=== PATIENT | female | born 1975 | race Hispanic/Latino ===

== ENCOUNTER 2020-04-12 12:40 | Observation (INO) | payer MEDICARE, OTHER ==
[~2020-04-12] VITALS: Ht 139.7 cm; Wt 110.7 kg
[~2020-04-12 12:40] MED LIST: BUMETANIDE1 MG PO; LABETALOL HCL100 MG PO; LEVOTHYROX200 MCG/VI PO; LYRICA75 MG PO; METOLAZONE5 MG PO; METOPROLOL SUCC50 MG; POTASSIUM CHLO10 ME1 PO; TAPAZOLE10 MG; ULTRAM50 MG PO
--- NOTE | 2020-04-12 12:56 | Emergency Department Note ---
History of Present Illnes History of Present Illness Chief Complaint: Chest Pain History of Present Illness This is a 45 year old female arrives to the ED with complaints left-marilou ed chest pain is worse on exertion started yesterday . Chief Complaint Comment PATIENT IN FROM HOME WITH COMPLAINTS OF LEFT SIDED CHEST PAIN RADIATING DOWN LEFT ARM STARTING APPROX 0300; STATES THAT SHE TOOK A BABY ASPIRIN, WHICH HELPED SOME. PATIENT RATES PAIN 6/10, APPEARS ANXIOUS, RESP EVEN AND NONLABORED, AMBULATORY WITHOUT ASSISTANCE Historian: Patient Arrival Mode: Car Onset (how long ago): week(s) Onset quality: sudden Duration (how long): day(s) Timing of current episode: constant Relieving factors: none Past Medical/Family History Physician Review I have reviewed the patient's past medical and family history. Any updates have been documented here. Past Medical History Recent Fever: No Clinical Suspicion of Infectio: No New/Unexplained Change in Ment: No Past Medical History: Hypothyroidism Past Surgical History: Other Surgery: csection Social History Smoking Cessation: Never Smoker Other Last Tetanus: uitd Review of Systems Review of Systems Constitutional: Reports no symptoms EENTM: Reports no symptoms Cardiovascular: Reports as per HPI, Reports chest pain Respiratory: Reports no symptoms Gastrointestinal: Reports no symptoms Genitourinary: Reports no symptoms Musculoskeletal: Reports no symptoms Integumentary: Reports no symptoms Neurological: Reports no symptoms Psychological: Reports no symptoms Endocrine: Reports no symptoms Hematological/Lymphatic: Reports no symptoms Physical Exam Related Data Allergies: Coded Allergies: No Known Allergies (Unverified , 01/07/15) Triage Vital Signs Vital Signs Date Time Temp Pulse Resp B/P (MAP) Pulse Ox O2 Delivery O2 Flow Rate FiO2 04/12/20 12:45 98.4 106 20 149/83 100 Room Air Vital signs reviewed: Yes Physical Exam CONSTITUTIONAL Constitutional: Present well-developed, Present well-nourished HENT HENT: Present normocephalic, Present atraumatic, Present oropharynx clear/moist, Present nose normal HENT L/R: Present left ext ear normal, Present right ext ear normal EYES Eyes: Reports PERRL, Reports conjunctivae normal NECK Neck: Present ROM normal PULMONARY Pulmonary: Present effort normal, Present breath sounds normal CARDIOVASCULAR Cardiovascular: Present regular rhythm, Present heart sounds normal, Present capillary refill normal, Present normal rate GASTROINTESTINAL Abdominal: Present soft, Present nontender, Present bowel sounds normal GENITOURINARY Genitourinary: Present exam deferred SKIN Skin: Present warm, Present dry MUSCULOSKELETAL Musculoskeletal: Present ROM normal NEUROLOGICAL Neurological: Present alert, Present oriented x 3, Present no gross motor or sensory deficits PSYCHOLOGICAL Psychological: Present mood/affect normal, Present judgement normal Results Laboratory Lab results reviewed: Yes Laboratory comments Laboratory Tests Test 04/12/20 12:50 White Blood Count 8.12 x10e3/uL (4.8-10.8) Red Blood Count 4.84 x10e6/uL (3.6-5.1) Hemoglobin 14.8 g/dL (12.0-16.0) Hematocrit 44.4 % (34.2-44.1) Mean Corpuscular Volume 91.7 fL (81-99) Mean Corpuscular Hemoglobin 30.6 pg (28-32) Mean Corpuscular Hemoglobin Concent 33.3 g/dL (31-35) Red Cell Distribution Width 13.0 % (11.7-14.4) Platelet Count 274 x10e3/uL (140-360) Neutrophils (%) (Auto) 73.9 % (38.7-80.0) Lymphocytes (%) (Auto) 20.4 % (18.0-39.1) Monocytes (%) (Auto) 3.3 % (4.4-11.3) Eosinophils (%) (Auto) 1.0 % (0.0-6.0) Basophils (%) (Auto) 0.5 % (0.0-1.0) Neutrophils # (Auto) 6.0 (2.1-6.9) Lymphocytes # (Auto) 1.7 (1.0-3.2) Monocytes # (Auto) 0.3 (0.2-0.8) Eosinophils # (Auto) 0.1 (0.0-0.4) Basophils # (Auto) 0.0 (0.0-0.1) Absolute Immature Granulocyte (auto 0.07 x10e3/uL (0-0.1) Prothrombin Time 12.6 seconds (11.9-14.5) Prothromb Time International Ratio 0.90 Activated Partial Thromboplast Time 29.7 seconds (23.8-35.5) Sodium Level 143 mmol/L (136-145) Potassium Level 3.9 mmol/L (3.5-5.1) Chloride Level 110 mmol/L (98-107) Carbon Dioxide Level 21 mmol/L (22-29) Anion Gap 15.9 mmol/L (8-16) Blood Urea Nitrogen 11 mg/dL (7-26) Creatinine 0.82 mg/dL (0.57-1.11) Estimat Glomerular Filtration Rate > 60 ML/MIN (60-) BUN/Creatinine Ratio 13 (6-25) Glucose Level 136 mg/dL (74-118) Calcium Level 9.3 mg/dL (8.4-10.2) Total Bilirubin 0.5 mg/dL (0.2-1.2) Aspartate Amino Transf (AST/SGOT) 18 IU/L (5-34) Alanine Aminotransferase (ALT/SGPT) 28 IU/L (0-55) Alkaline Phosphatase 96 IU/L (40-150) Creatine Kinase 34 IU/L (29-168) Creatine Kinase MB 0.80 ng/mL (0-5.0) Troponin I 0.007 ng/mL (0-0.300) B-Type Natriuretic Peptide 11.9 pg/mL (0-100) Total Protein 7.3 g/dL (6.5-8.1) Albumin 4.3 g/dL (3.5-5.0) Globulin 3.0 g/dL (2.3-3.5) Albumin/Globulin Ratio 1.4 (0.8-2.0) Imaging Imaging results reviewed: Yes Procedures 12 Lead ECG Interpretation ECG Interpretation : ECG: ECG 1 Prior ECG tracings: reviewed Ectopy: PVC's Rate: normal QRS axis: left ST segments normal: Yes T waves normal: Yes Clinical Impression: normal ECG Assessment & Plan Medical Decision Making MDM 45-year-old female arrives to the ED with complaints of atypical chest pain. 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 Patient admitted for serial cardiac markers. Assessment & Plan Final Impression: (1) Chest pain Depart Disposition: ADMITTED Last Vital Signs Date Time Temp Pulse Resp B/P (MAP) Pulse Ox O2 Delivery O2 Flow Rate FiO2 04/12/20 12:45 98.4 106 20 149/83 100 Room Air Home Meds Reported Medications Tramadol Hcl (ULTRAM) 50 Mg Tablet, 50 MG PO QID, TAB 01/07/15 Levothyroxine Sodium (LEVOTHYROXINE SODIUM) 200 Mcg/Vial Inj, 175 MCG PO DAILY, VIAL 01/07/15 Metolazone (METOLAZONE) 5 Mg Tablet, 10 MG PO DAILY, #30 TAB 01/07/15 Potassium Chloride (POTASSIUM CHLORIDE) 10 Meq Tab.er.prt, 10 MEQ PO DAILY, TAB 01/07/15 Bumetanide (BUMETANIDE) 1 Mg Tablet, 1 MG PO DAILY, #30 TAB 01/07/15 Pregabalin (LYRICA) 75 Mg Cap, 75 MG PO DAILY, #30 CAP 01/07/15 Labetalol Hcl (LABETALOL HCL) 100 Mg Tablet, 100 MG PO BID, #30 TAB 01/07/15 Metoprolol Succinate (METOPROLOL SUCCINATE) 50 Mg Tab.er.24h, BID 05/20/12 Methimazole (TAPAZOLE) 10 Mg Tablet, TID 05/20/12 Medications in the ED Aspirin 81 mg PRN ONCE PO ; Start 04/12/20 at 13:00; Stop 04/12/20 at 13:01 JOSE JAIN DO Apr 12, 2020 12:56
[2020-04-12 12:58] LABS: BASOPHILS % 0.5 % (0.0-1.0); EOSINOPHILS # (AUTO) 0.1 (0.0-0.4); HEMATOCRIT 44.4 % (34.2-44.1); HEMOGLOBIN 14.8 g/dL (12.0-16.0); LYMPHOCYTES # (AUTO) 1.7 (1.0-3.2); LYMPHOCYTES % 20.4 % (18.0-39.1); MEAN CORPUSCULAR HEMOGLOBIN 30.6 pg (28-32); MEAN CORPUSCULAR HGB CONC 33.3 g/dL (31-35); MEAN CORPUSCULAR VOLUME 91.7 fL (81-99); MONOCYTES # (AUTO) 0.3 (0.2-0.8); MONOCYTES % 3.3 % (4.4-11.3); NEUTROPHILS % 73.9 % (38.7-80.0); PLATELET COUNT 274 x10e3/uL (140-360); RED BLOOD COUNT 4.84 x10e6/uL (3.6-5.1)
[2020-04-12] MEDS ORDERED: ASPIRIN 81 MG CHEW TAB PO ONE ×2 (13:00→15:30)
[2020-04-12 13:09] LABS: INR 0.9; PARTIAL THROMBOPLASTIN TIME 29.7 seconds (23.8-35.5); PROTHROMBIN TIME 12.6 seconds (11.9-14.5)
[2020-04-12 13:19] LABS: ALANINE AMINOTRANSFERASE 28 IU/L (0-55); ALBUMIN 4.3 g/dL (3.5-5.0); ALBUMIN/GLOBULIN RATIO 1.4 (0.8-2.0); ALKALINE PHOSPHATASE 96 IU/L (40-150); ANION GAP 15.9 mmol/L (8-16); BLOOD UREA NITROGEN 11 mg/dL (7-26); BUN/CREATININE RATIO 13 (6-25); CALCIUM 9.3 mg/dL (8.4-10.2); CARBON DIOXIDE 21 mmol/L (22-29); CHLORIDE 110 mmol/L (98-107); CREATINE KINASE 34 IU/L (29-168); CREATININE, SERUM 0.82 mg/dL (0.57-1.11); EST GLOMERULAR FILTRATION RATE > 60 ML/MIN (60-); GLUCOSE 136 mg/dL (74-118); POTASSIUM 3.9 mmol/L (3.5-5.1); SODIUM 143 mmol/L (136-145)
--- NOTE | 2020-04-12 14:09 | Diagnostic Imaging Report ---
EXAMINATION: CHEST SINGLE (PORTABLE) INDICATION: Chest pain COMPARISON: Chest radiograph 01/07/2015 FINDINGS: LINES/TUBES:None LUNGS:The lungs are well-inflated. No focal consolidation or pulmonary edema. PLEURA:No pleural effusion or pneumothorax. MEDIASTINUM:The cardiomediastinal silhouette appears normal in size and shape. BONES/SOFT TISSUES:No acute osseous injury. ABDOMEN:No free air under the diaphragm. IMPRESSION: No focal pneumonia or pulmonary edema. Signed by: Carol Jiang MD on 04/12/2020 2:05 PM
--- NOTE | 2020-04-12 17:42 | NUR ---
1st attempt to call report
--- NOTE | 2020-04-12 17:47 | NUR ---
received telephone order from Dr. Vinod North for Echocardiogram and states that he will see her in the AM
--- NOTE | 2020-04-12 17:50 | NUR ---
2nd attempt to call report
--- NOTE | 2020-04-12 19:12 | NUR ---
pt received. upon walking rounds pt co chest pain to mid chest pain scale rate 4. tele in place. spoke to dr sherman regarding chest pain. new orders received. will cont to follow poc. call jane within reach.
[2020-04-12 19:13] VITALS: BP 142/82
[2020-04-12] MEDS ORDERED: NITROGLYCERIN 0.4 MG SUBL SL PRN (19:30)
[2020-04-12] MEDS ORDERED: HYDROCODONE/APAP 5MG-325MG TAB PO PRN (19:30)
--- NOTE | 2020-04-12 19:39 | NUR ---
no co chest pain. no distress noted. admission hx obtained at time. call jane within reach.
[2020-04-12 20:00] VITALS: BP 142/82
[2020-04-12 20:07] LABS: CREATINE KINASE MB 0.6 ng/mL (0-5.0)
[2020-04-12 20:31] VITALS: BP 142/82
[2020-04-12] MEDS ORDERED: SYNTHROID125 MCG PO (22:56)
[2020-04-12] MEDS ORDERED: HYDRALAZINE HCL 20 MG/ML VIAL IV PRN (23:00)
[2020-04-12] MEDS ORDERED: ACETAMINOPHEN 325 MG TAB PO PRN (23:00)
[2020-04-12] MEDS ORDERED: ONDANSETRON HCL INJ 2MG/ML 2ML 2 MG/ML VIAL IV PRN (23:00)
[2020-04-12] MEDS ORDERED: METOPROLOL TARTRATE INJ 1 MG/ML VIAL IV PRN (23:00)
[2020-04-13 00:24] VITALS: BP 115/62
[2020-04-13 04:51] VITALS: BP 149/90
--- NOTE | 2020-04-13 04:53 | NUR ---
pt resting. no ss of distress noted. call jane within reach.
[2020-04-13 05:14] LABS: CHOL/HDL RATIO 2.8 (3.0-3.6)
[2020-04-13 05:37] LABS: CREATINE KINASE MB 0.5 ng/mL (0-5.0)
[2020-04-13] MEDS ORDERED: LEVOTHYROXINE SODIUM 100 MCG TAB PO SCH (06:30)
[2020-04-13] MEDS ORDERED: LEVOTHYROXINE SODIUM 75 MCG TAB PO SCH (06:30)
--- NOTE | 2020-04-13 07:10 | NUR ---
RCD PT AT BED PT IS ALERT AND ORIENTED RESTING ON BED IV PATENT BED LOW AND LOCKED CALL LIGHT IN REACH
[2020-04-13 08:41] VITALS: BP 141/73
[2020-04-13 09:08] VITALS: BP 141/73
[2020-04-13] MEDS ORDERED: METOPROLOL SUCCINATE 25 MG TAB XL PO SCH (10:00)
[2020-04-13] MEDS ORDERED: METOPROLOL SUCC25 MG PO (11:14)
[2020-04-13 11:20] VITALS: BP 127/76
--- NOTE | 2020-04-13 12:56 | NUR ---
PATIENT WENT HOME IN SAFE CONDITION WITH HER SISTER
--- NOTE | 2020-04-13 13:03 | History and Physical ---
CHIEF COMPLAINT: Chest pain. HISTORY OF PRESENT ILLNESS: A 45 years old morbidly obese female with hypothyroidism, came in with atypical chest pain. The patient had a stress test previously that was negative that was approximately 1-2 years ago. She is now pending for another stress test as an outpatient with Dr. North, but she came to emergency room instead. The patient's cardiac enzymes have been negative. Chest x-ray unremarkable. The patient is pending for stress test. PAST MEDICAL HISTORY: Morbid obesity, hypothyroidism. PAST SURGICAL HISTORY: Noncontributory. SOCIAL HISTORY: The patient does not smoke or use alcohol. No regular drugs. ALLERGIES: NO KNOWN ALLERGIES. HOME MEDICATIONS: Levothyroxine. PHYSICAL EXAMINATION: VITAL SIGNS: Temperature is 98, blood pressure 149/90, pulse rate 69, respirations 18. GENERAL: The patient is not in acute distress, awake. HEENT: Normocephalic and atraumatic. Anicteric. NECK: Supple grossly. PULMONARY: Clear. CARDIOVASCULAR: Regular rate and rhythm. ABDOMEN: Soft and unremarkable. EXTREMITIES: No cyanosis or edema. NEUROLOGIC: No gross focal deficit. LABORATORY DATA: Sodium 143, potassium 3.9, chloride 110, bicarb 21, BUN 11, creatinine 0.8, glucose is 136. WBC is 8.1, hemoglobin 14.8, hematocrit is 44.4, platelets 274. Cardiac enzymes, troponin I is negative. IMPRESSION: 1. Atypical chest pain. 2. Morbid obesity. 3. Hypothyroidism. PLAN: Echocardiogram. Dr. North to see the patient. Once stress test is negative, the patient should be able to go home today. MD MARISSA Wynne/GORGEL /[id number]
[2020-04-13] MEDS ORDERED: ONDANSETRON HCL 4 MG ORAL DISINTEGRATING TAB PO PRN (13:30)
--- NOTE | 2020-04-13 18:34 | Progress Note ---
DATE: 04/13/2020 Cardiology Consultation REASON FOR CONSULTATION: Chest pain. 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 The patient underwent cardiac rule out with negative troponins x3. BNP has been 11.9. P.r.n. analgesics were provided with symptomatic improvement. Telemetry was remarkable for occasional PVCs. REVIEW OF SYSTEMS: A 12-system review negative except for as noted above. PAST MEDICAL HISTORY: As per HPI, achondroplasia and hypothyroidism. SOCIAL HISTORY: No smoking, alcohol, or drugs. FAMILY HISTORY: Noncontributory. PHYSICAL EXAMINATION: VITAL SIGNS: Temperature 98.3, heart rate 72, blood pressure 141/73, respiratory rate 20, and O2 saturation 99%. BMI 56. GENERAL: In no acute distress. Alert. NECK: No JVD. CHEST: Clear to auscultation. CARDIOVASCULAR: Regular rate and rhythm. Normal S1 and S2. No S3. No S4. ABDOMEN: Soft. Bowel sounds positive. EXTREMITIES: Trace edema. CARDIOVASCULAR MEDICATIONS: Reviewed. Metoprolol tartrate 5 mg q.3 hours p.r.n., hydralazine 10 q.2 hours p.r.n., nitroglycerin p.r.n., acetaminophen/hydrocodone q.6 hours p.r.n. STUDIES: Reviewed. Chest x-ray, clear lungs. Normal cardiomediastinal silhouette. Sodium 143, potassium 3.9, chloride 110, bicarbonate 21, BUN 11, creatinine 0.8, and glucose 136. White blood cells 8, hemoglobin 14.8, and platelets 274. PT 12.6, PTT 29.7, and INR 0.9. AST 18, ALT 28, and alkaline phosphatase 96. BNP 11.9. Troponin I negative x3. LDL 84, HDL 52, and triglycerides 145. ASSESSMENT AND PLAN: A 45-year-old woman presents with atypical chest discomfort, occasional premature ventricular contractions on telemetry, monitor, hypothyroidism, achondroplasia. RECOMMEND: Symptoms have somewhat abated. At presentation, atypical lasting several days and in spite of these negative cardiac biomarkers. Outpatient stress test has been advised and discussed with the patient for scheduling. The patient has office appointment arranged. Initiate home p.o. beta-tiffany therapy. Alarm signs discussed with the patient to return to ER or call 911. MD TabaresV/MODL /[id number]
--- OUTSIDE RECORDS SUMMARY | 2020-04-17 15:19 | XMS REPORT | Continuity of Care Document ---
Author Author [facility] t Organization [facility] Address [address] [place] [address] Phone Unavailable Care Team Providers Care Sign Hanger Supervisor Name Role Phone MD Sarabjit RICKS PCP [phone] Krzysztof JAIN Unavailable Payers Payer Name Policy Type Policy Number Effective Date Expiration Date Krzysztof bahena [facility] [id number] 00:[facility]00 [facility] Problems Condition Name Condition Details Condition Category Status Onset Date Resolution Date Last Treatment Date Treating Clinician Comments Source Chest pain Problem Active [facility] Allergies, Adverse Reactions, Alerts This patient has no known allergies or adverse reactions. Social History Social Habit Start Date Stop Date Quantity Comments Source Sex Assigned At 1975 00:00:00 1975 00:00:00 Female [facility] Medications Ordered Medication Name Filled Medication Name Start Date Stop Da te Current Medication? Ordering Clinician Indication Dosage Frequency Signature (SIG) Comments Components Source Levothyroxine Sodium (Synthroid) 125 Mcg TAB Levothyro xine Sodium (Synthroid) 125 Mcg TAB Yes 175 Today At 6:30AM [facility] Metoprolol Succinate Metoprolol Succinate Yes Bedtime [facility] Bumetanide Bumetanide 2020-04-12 00:00:00 No 1 Archana ly [facility] Labetalol Hcl Labetalol Hcl 2020-04-12 00:00:00 No 100 Twice A Day [facility] Levothyroxine Sodium Levothyroxine Sodium 2020-04-12 00:00:00 No 175 Daily [facility] Methimazole (Tapazole) 10 Mg TABLET Methimazole (Tapazole) 10 Mg TABLET 2020-04-12 00:00:00 No Three Times A Day [facility] Metolazone Metolazone 2020-04-12 00:00:00 No 10 Archana ly [facility] Metoprolol Succinate Metoprolol Succinate 2020-04-12 00:00:00 No Twice A Day [facility] Potassium Chloride Potassium Chloride 2020-04-12 00:00:00 No 10 Daily [facility] Pregabalin (Lyrica) 75 Mg CAP Pregabalin (Lyrica) 75 Mg CAP 2020-04-12 00:00:00 No 75 Daily [facility] Tramadol Hcl (Ultram) 50 Mg TABLET Tramadol Hcl (Ultram) 50 Mg T ABLET 2020-04-12 00:00:00 No 50 Four Times Daily [facility] Vital Signs Vital Name Observation Time Observation Value Comments Source Body Temperature 2020-04-13 11:20:00 98.0 [degF] [facility] Weight 2020-04-12 19:34:00 244 [lb_av] [facility] BMI (Body Mass Index) 2020-04-12 19:34:00 56.7 kg/m2 [facility] Procedures This patient has no known procedures. Plan of Care Planned Activity Planned Date Details Comments Source Instructions Chest Pain - Chest Wall [facility] Encounters Start Date/Time End Date/Time Encounter Type Admission Type [facility] Care Department Encounter ID Source 2020-04-12 15:32:00 2020-04-13 12:56:00 Discharged Inpatient (obs) 1 JOSE JAIN [facility] [id number] I [facility] Results Test Description Test Time Test Comments Results Result Comments Source Serum or plasma triglyceride measurement (mass/volume) 04-13 04:35:00 Test Item Triglycerides Level (test code = 2571-8) 45 0-149 [facility] cholesterol measurement (mass/volume)2020-04-13 04:35:00* Test Item Value Reference Range Interpretation Comments Cholesterol Level (test code = 2093-3) 145 0-199 Less than 200 mg/dL Low Dysf529 - 239 mg/dL Borderline Wjvq760 m g/dl and greater High Risk [facility] plasma cholesterol in LDL measurement (mass/volume) 2020-04-13 04:35:00* Test Item Value Reference Range Interpretation Comments LDL Cholesterol (test code = 2089-1) 84 60-130 [facility] cholesterol in HDL measurement (mass/volume)2020-04-13 04:35:00* Test Item Value Reference Range Interpretation Comments HDL Cholesterol (test code = 2085-9) 52 40-60 [facility] plasma total cholesterol/cholesterol in HDL mass [id number] 04:35:00* Test Item Value Reference Range Interpretation Comments Cholesterol/HDL Ratio (test code = 9830-1) 2.8 3.0-3.6 [facility] or plasma creatine kinase measurement (enzymatic activity/volume)2020-04-13 04:35:00* Test Item Value Reference Range Interpretation Comments Creatine Kinase (test code = 2157-6) 25 29-168 [facility] plasma creatine kinase MB measurement (mass/volume)2020-04-13 04:35:00* Test Item Value Reference Range Interpretation Comments Creatine Kinase MB (test code = 73124-3) 0.50 0-5.0 [facility] I measurement by highly sensitive enzyme [id number] 04:35:00* Test Item Value Reference Range Interpretation Comments Troponin I (test code = 50427-1) 0.013 0-0.300 [facility] Hospital[facility]ST SINGLE (PORTABLE)2020-04-12 14:05:00 [facility] [address] [place] [address] Patient Name: KASIA ROSE MR #: [id number] : 1975 Age/Sex: 45/F Req #: [id number] Adm Physician: Ordered by: JOSE JAIN DO Report #: [id number] Location: ER Room/Bed: Procedure: [id number] DX/CHEST SI NGLE (PORTABLE) Exam Date: 04/12/20 Exam Time: 1349 REPORT STATUS: Signed EXAMINATIO N: CHEST SINGLE (PORTABLE) INDICATION: Chest pain COMPARISON: [facility] st radiograph 01/07/2015 FINDINGS: LINES/TUBES:None LUNGS:The lungs are well-inflated. No focal consolidation or pulmonary edema. PLEURA :No pleural effusion or pneumothorax. MEDIASTINUM:The cardiomediastinal ricardo houette appears normal in size and shape. BONES/SOFT TISSUES:No acute osseo us injury. ABDOMEN:No free air under the diaphragm. IMPRESSION: No focal pneumonia or pulmonary edema. Signed by: Beth Shipley MD on 04/12/20 2:05 PM Dictated By: BETH SHIPLEY MD 04 Transcribed By: ДМИТРИЙ on 04/12/201404 COPY TO: JOSE JAIN DO Blood leukocytes automated count (number/volume) 2020-04-12 12:50:00* Test Item Value Reference Range Interpretation Comments White Blood Count (test code = 6690-2) 8.12 4.8-10.8 [facility] erythrocytes automated count (number/volume)2020-04-12 12:50:00* Test Item Value Reference Range Interpretation Comments Red Blood Count (test code = 789-8) 4.84 3.6-5.1 [facility] hemoglobin measurement (moles/volume)2020-04-12 12:50:00* Test Item Value Reference Range Interpretation Comments Hemoglobin (test code = 52625-0) 14.8 12.0-16.0 [facility] HospitalAutomated blood hematocrit (volume fraction)2020-04-12 12:50:00* Test Item Value Reference Range Interpretation Comments Hematocrit (test code = 4544-3) 44.4 34.2-44.1 [facility] HospitalAutomated erythrocyte mean corpuscular [id number] 12:50:00* Test Item Value Reference Range Interpretation Comments Mean Corpuscular Volume (test code = 787-2) 91.7 81-99 [facility] HospitalAutomated erythrocyte mean corpuscular hemoglobin (mass per erythrocyte)2020-04-12 12:50:00* Test Item Value Reference Range Interpretation Comments Mean Corpuscular Hemoglobin (test code = 785-6) 30.6 28-32 [facility] HospitalAutfirst[facility] erythrocyte mean corpuscular hemoglobin concentration measurement (mass/volume)2020-04-12 12:50:00* Test Item Value Reference Range Interpretation Comments Mean Corpuscular Hemoglobin Concent (test code = 786-4) 33.3 31-35 [facility] HospitalRDW [id number]-[id number] 12:50:00* Test Item Value Reference Range Interpretation Comments Red Cell Distribution Width (test code = 69600-8) 13.0 11.7 -14.4 [facility] HospitalAut[facility] wayneed blood platelet count (count/volume)2020-04-12 12:50:00* Test Item Value Reference Range Interpretation Comments Platelet Count (test code = 777-3) 274 140-360 [facility] HospitalAut[facility] blood segmented neutrophil count as percentage of total caujtkyxis4016-70-53 12:50:00* Test Item Value Reference Range Interpretation Comments Neutrophils (%) (Auto) (test code = 09142-2) 73.9 38.7-80.0 [facility] HospitalAutfirst[facility] blood lymphocyte count as percentage ot total yyufvkscsf2825-26-29 12:50:00* Test Item Value Reference Range Interpretation Comments Lymphocytes (%) (Auto) (test code = 736-9) 20.4 18.0-39.1 [facility] HospitalAutomated blood monocyte count as percentage of total [id number] 12:50:00* Test Item Value Reference Range Interpretation Comments Monocytes (%) (Auto) (test code = 5905-5) 3.3 4.4-11.3 [facility] HospitalAutomated blood eosinophil count as percentage of total pijffctbsw6838-53-90 12:50:00* Test Item Value Reference Range Interpretation Comments Eosinophils (%) (Auto) (test code = 713-8) 1.0 0.0-6.0 [facility] HospitalAutomated blood basophil count as percentage of total oyyfrouwrg5994-29-29 12:50:00* Test Item Value Reference Range Interpretation Comments Basophils (%) (Auto) (test code = 706-2) 0.5 0.0-1.0 [facility] HospitalFluoroscopic procedure less than one hour imwlejxa9013-56-76 12:50:00* Test Item Value Reference Range Interpretation Comments IM GRANULOCYTES % (test code = IM GRANULOCYTES %) 0.9 0.0- 1.0 [facility] HospitalAutomated blood neutrophil count 2020-04-12 12:50:00* Test Item Value Reference Range Interpretation Comments Neutrophils # (Auto) (test code = 751-8) 6.0 2.1-6.9 [facility] HospitalBlood lymphocytes count (number/volume) 2020-04-12 12:50:00* Test Item Value Reference Range Interpretation Comments Lymphocytes # (Auto) (test code = 14718-6) 1.7 1.0-3.2 [facility] HospitalBlood monocytes automated count (number/volume)2020-04-12 12:50:00* Test Item Value Reference Range Interpretation Comments Monocytes # (Auto) (test code = 742-7) 0.3 0.2-0.8 [facility] HospitalAutomated blood eosinophil count 2020-04-12 12:50:00* Test Item Value Reference Range Interpretation Comments Eosinophils # (Auto) (test code = 711-2) 0.1 0.0-0.4 [facility] HospitalAutomated blood basophil count (count/volume)2020-04-12 12:50:00* Test Item Value Reference Range Interpretation Comments Basophils # (Auto) (test code = 704-7) 0.0 0.0-0.1 [facility] HospitalFluoroscopic procedure less than one hour sdxgrflr3807-41-11 12:50:00* Test Item Value Reference Range Interpretation Comments Absolute Immature Granulocyte (auto (fer t code = Absolute Immature Granulocyte (auto) 0.07 0-0.1 [facility] HospitalProthrombin time (PT) in platelet poor plasma by coagulation [id number] 12:50:00* Test Item Value Reference Range Interpretation Comments Prothrombin Time (test code = 5902-2) 12.6 11.9-14.5 [facility] HospitalINR in Platelet poor plasma by Coagulation [id number] 12:50:00* Test Item Value Reference Range Interpretation Comments Prothromb Time International Ratio (test code = 6301-6) 0.90 Oral Anticoagulant Therapy INR Values:1. Low Intensity Therapy 1.5 - 2.02 . Moderate Intensity Therapy 2.0 - 3.03. High Intensity Therapy(1) 2.5 - 3. 54. High Intensity Therapy(2) 3.0 - 4.05. Panic Value INR > 5.0 [facility] HospitalActivated partial thromboplastin time (aPTT) in platelet poor plasma by coagulation wmsbt7369-29-51 12:50:00* Test Item Value Reference Range Interpretation Comments Activated Partial Thromboplast Time (test code = 07476-1) 29.7 23.8-35.5 [facility] Hospitalerum or plasma sodium measurement (moles/volume)2020-04-12 12:50:00* Test Item Value Reference Range Interpretation Comments Sodium Level (test code = 2951-2) 143 136-145 [facility] Hospitalerum or plasma potassium measurement (moles/volume)2020-04-12 12:50:00* Test Item Value Reference Range Interpretation Comments Potassium Level (test code = 2823-3) 3.9 3.5-5.1 [facility] Hospitalerum or plasma chloride measurement (moles/volume)2020-04-12 12:50:00* Test Item Value Reference Range Interpretation Comments Chloride Level (test code = 2075-0) 110 98-107 [facility] Hospitalerum or plasma carbon dioxide, total measurement (moles/volume)2020-04-12 12:50:00* Test Item Value Reference Range Interpretation Comments Carbon Dioxide Level (test code = 2028-9) 21 22-29 [facility] Hospitalerum or plasma anion [id number] 12:50:00* Test Item Value Reference Range Interpretation Comments Anion Gap (test code = 12517-9) 15.9 8-16 [facility] Hospitalerum or plasma urea nitrogen measurement (mass/volume)2020-04-12 12:50:00* Test Item Value Reference Range Interpretation Comments Blood Urea Nitrogen (test code = 3094-0) 11 7-26 [facility] Hospitalerum or plasma creatinine measurement (mass/volume)2020-04-12 12:50:00* Test Item Value Reference Range Interpretation Comments Creatinine (test code = 2160-0) 0.82 0.57-1.11 [facility] Hospitalerum or plasma urea nitrogen/creatinine mass qwcky0924-25-78 12:50:00* Test Item Value Reference Range Interpretation Comments BUN/Creatinine Ratio (test code = 3097-3) 13 6- [facility] HospitalEstimated glomerular filtration rate (GFR) cubffskysqsjr6518-49-82 12:50:00* Test Item Value Reference Range Interpretation Comments Estimat Glomerular Filtration Rate (test code = 199345734) > 60 >60 Ranges were taken from the National Kidney Disease Education Program and the [facility] Kidney Foundation literature.Reference ranges:60 or greater: Mugjdf70-16 ( for 3 consecutive months): Chronic kidney disease 15 or less: Kidney failureMethodist Specialty and Transplant HospitalGlucose nncfnpslwan5175-07-35 12:50:00* Test Item Value Reference Range Interpretation Comments Glucose Level (test code = ENO9292) 136 74-118 [facility] Hospitalerum or plasma calcium measurement (mass/volume)2020-04-12 12:50:00* Test Item Value Reference Range Interpretation Comments Calcium Level (test code = 72901-3) 9.3 8.4-10.2 [facility] Hospitalerum or plasma total bilirubin measurement (mass/volume)2020-04-12 12:50:00* Test Item Value Reference Range Interpretation Comments Total Bilirubin (test code = 1975-2) 0.5 0.2-1.2 [facility] HospitalFluoroscopic procedure less than one hour [id number] 12:50:00* Test Item Value Reference Range Interpretation Comments Aspartate Amino Transf (AST/SGOT) (test code = Aspartate Amino Transf (AST/SGOT)) 18 5-34 [facility] Hospitalerum or plasma alanine aminotransferase measurement (enzymatic activity/volume)2020-04-12 12:50:00* Test Item Value Reference Range Interpretation Comments Alanine Aminotransferase (ALT/SGPT) (test code = 1742-6) 28 0-55 [facility] Hospitalerum or plasma protein measurement (mass/volume)2020-04-12 12:50:00* Test Item Value Reference Range Interpretation Comments Total Protein (test code = 2885-2) 7.3 6.5-8.1 [facility] Hospitalerum or plasma albumin measurement (mass/volume)2020-04-12 12:50:00* Test Item Value Reference Range Interpretation Comments Albumin (test code = 1751-7) 4.3 3.5-5.0 [facility] HospitalPlasma globulin measurement (mass/volume) 2020-04-12 12:50:00* Test Item Value Reference Range Interpretation Comments Globulin (test code = 08601-9) 3.0 2.3-3.5 [facility] Hospitalerum or plasma albumin/globulin mass [id number] 12:50:00* Test Item Value Reference Range Interpretation Comments Albumin/Globulin Ratio (test code = 1759-0) 1.4 0.8-2.0 [facility] Hospitalerum or plasma alkaline phosphatase measurement (enzymatic activity/volume)2020-04-12 12:50:00* Test Item Value Reference Range Interpretation Comments Alkaline Phosphatase (test code = 6768-6) 96 40-150 [facility] HospitalBNP Ego-fVpz3095-40-22 12:50:00* Test Item Value Reference Range Interpretation Comments B-Type Natriuretic Peptide (test code = 84985-8) 11.9 0-100 [facility]
== END 2020-04-13 12:56 | disposition home or self-care (01) ==
LOC: ER 13:20 → ERHOLD 15:32 → MED/SURG2 18:08
PROVIDERS: ADMIT Internal Medicine; ATTEND Internal Medicine
DX: R07.89 Other chest pain (principal); E66.01 Morbid (severe) obesity due to excess calories; Z68.43 Body mass index [BMI] 50.0-59.9, adult; E03.9 Hypothyroidism, unspecified; I49.3 Ventricular premature depolarization; Q77.4 Achondroplasia
CPT/HCPCS: 36415 ×2; 71045; 80053; 80061; 82550 ×2; 82553 ×2; 83880; 84484 ×2; 85025; 85610; 85730; 93005; 93306; 99284; G0378 ×2; U0002